=== PATIENT | female | born 1990 | race Caucasian/White ===

== ENCOUNTER 2020-07-17 20:11 | Emergency (ER) | payer SELFPAY ==
[~2020-07-17] VITALS: Ht 167.6 cm; Wt 59.0 kg
--- NOTE | 2020-07-17 20:19 | NUR ---
C/O L HAND AND RFA DOG BITE. TDAP <1YR AGO PER PT REPORT
--- NOTE | 2020-07-17 20:44 | NUR ---
x. ray at bed side
[2020-07-17] MEDS ORDERED: ONDANSETRON 4 MG TAB.RAPDIS ONE (20:45)
[2020-07-17] MEDS ORDERED: HYDROCODONE/APAP 5/325MG 1 EACH TABLET ONE (20:45)
[2020-07-17] MEDS ORDERED: ONDANSETRON 4 MG TAB.RAPDIS PO ONE (21:00)
[2020-07-17] MEDS ORDERED: HYDROCODONE/APAP 5/325MG 1 EACH TABLET PO ONE (21:00)
[2020-07-17] MEDS ORDERED: LIDOCAINE HCL/MPF 1% 30 ML VIAL IJ ONE (21:11)
--- NOTE | 2020-07-17 22:20 | NUR ---
x ray at bed side
[2020-07-17] MEDS ORDERED: AMOX/CLAVULANATE 875 MG TABLET PO ONE (22:30)
[2020-07-17] MEDS ORDERED: AMOX/CLAVULANATE 875 MG TABLET ONE (22:31)
--- NOTE | 2020-07-17 22:48 | NUR ---
FABIANO CORTEZ AT BED SIDE FOR D/C INSTRUCTION
--- NOTE | 2020-07-17 23:02 | NUR ---
EMT AT BED SIDE TO APPLY L HAND SPLINT
[2020-07-17 23:03] VITALS: BP 111/68
--- NOTE | 2020-07-17 23:25 | NUR ---
PT MEDICALLY STABLE FOR D/C. Patient discharged to home in stable condition. Written and verbal after care instructions given. Patient verbalizes understanding of instruction.
== END 2020-07-17 23:25 | disposition home or self-care (01) ==
LOC: ER 20:15
DX: S61.412A Laceration without foreign body of left hand, initial encounter (principal); S51.831A Puncture wound without foreign body of right forearm, initial encounter; S09.8XXA Other specified injuries of head, initial encounter; W54.0XXA Bitten by dog, initial encounter; Y93.89 Activity, other specified; Y92.89 Other specified places as the place of occurrence of the external cause; Y99.8 Other external cause status
CPT/HCPCS: 12002; 73090 ×2; 73130; 99284; A6403 ×3; J3490; Q0162